=== PATIENT | female | born 1955 | race Caucasian/White ===

== ENCOUNTER → 2017-01-29 | Outpatient (CLI) | payer BC ==
--- NOTE | 2017-01-31 09:36 | MRI ---
History: Right knee pain. Technique: Multiplanar, multi sequence MR imaging of the right knee was performed without contrast. Comparison:NONE Findings: The anterior cruciate and posterior cruciate ligaments are intact. There is a complex tear involving the body and posterior horn of the medial meniscus. There is 3 mm of extrusion. There is a small inferiorly displaced flap suggested within the meniscotibial recess o n coronal PD fat sat image 18. The lateral meniscus is intact. The medial collateral ligament is intact. The iliotibial band, fibular collateral ligament, biceps f emoris tendon are intact. Popliteus is intact. Tendons of the gastrocnemius, semimembranosus, and pe s anserinus are intact. There is fluid within the media gastrocnemius-semimembranosus bursa which is dissecting inferiorly along the medial aspect of the medial gastrocnemius. There is a 1.5 x 0.8 cm ganglion cyst adjacent to the medial gastrocnemius origin. The quadriceps and the patellar tendons are intact. There is no significant joint effusion. The patella is of normal morphology without significant tilt or subluxation. There is grade 2 chondr omalacia along the lateral patellar facet. There is mild to moderate osteoarthrosis involving the me dial femorotibial compartment with generalize chondral thinning and partial thickness fissuring. Impression: 1. Complex tear involving body and posterior horn of the medial meniscus with mild extrusion. There is a small inferiorly displaced flap within the meniscotibial recess. 2. Fluid within the media gastrocnemius-semimembranosus bursa which is dissecting distally along the medial aspect of the gastrocnemius. 3. 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 Mild patellofemoral chondromalacia also noted . 4. Small ganglion cyst adjacent to the media gastrocnemius origin. Reported By:
== END | disposition home or self-care (01) ==
LOC: RAD 14:08
PROVIDERS: ATTEND Internal Medicine
DX: M25.561 Pain in right knee (principal); S83.231A Complex tear of medial meniscus, current injury, right knee, initial encounter; X58.XXXA Exposure to other specified factors, initial encounter
CPT/HCPCS: 73721